=== PATIENT | male | born 1965 | race Native Hawaiian/Other Pacific Islander ===

== ENCOUNTER 2017-04-21 15:58 | Inpatient (IN) | payer MEDICAID ==
[~2017-04-21] VITALS: Ht 175.3 cm; Wt 88.5 kg
[2017-04-21 16:24] VITALS: BP 198/140
[2017-04-21] MEDS ORDERED: NACL 0.9% 1,000 ML IV SCH (16:37)
--- NOTE | 2017-04-21 16:37 | NUR ---
Patient ambulated to bed 03.
--- NOTE | 2017-04-21 16:38 | NUR ---
bed 04
--- NOTE | 2017-04-21 16:39 | NUR ---
Dr. Baker evaluating patient at bedside.
[2017-04-21] MEDS ORDERED: ONDANSETRON 4 MG/2 ML VIAL IVP ONE (16:40)
--- NOTE | 2017-04-21 16:45 | NUR ---
PATIENT PRESENTS TO ED WITH C/O DIZZINESS, NAUSEA, VOMITING, DRY MOUTH X6 DAYS CHECKED SUGAR AT HOME FROM MOTHER'S MACHINE AND READ > 600 HX---HTN, HEP C, ASTHMA, RX----NON COMPLIANT . DENIES DIARRHEA; SKIN IS PINK/WARM/DRY; AAOX4 WITH EVEN AND STEADY GAIT; LUNGS CLEAR BL; HR EVEN AND REGULAR; PT DENIES ANY FEVER, CP, SOB, OR COUGH AT THIS TIME; PATIENT STATES PAIN OF 0/10 AT THIS TIME; VSS; PATIENT POSITIONED FOR COMFORT; HOB ELEVATED; BEDRAILS UP X2; BED DOWN. ER MD MADE AWARE OF PT STATUS.
--- NOTE | 2017-04-21 16:55 | NUR ---
XRAY at bedside.
[2017-04-21] MEDS ORDERED: NACL 0.9% 3,000 ML IV ONE (17:00)
[2017-04-21] MEDS ORDERED: INSULIN HUMAN REGULAR 100 UNITS/ML 10 ML VIAL IVP ONE ×2 (17:00)
[2017-04-21 17:05] LABS: BASOPHILS # (AUTO) 0.4 K/uL (0.00-0.22); EOSINOPHILS # (AUTO) 0.1 K/uL (0-0.4); EOSINOPHILS % (AUTO) 1.2 % (0.0-4.0); HEMATOCRIT 51.7 % (36-52); HEMOGLOBIN 17.5 g/dL (12.0-18.0); LYMPHOCYTES # (AUTO) 3.5 K/uL (2.0-11.5); MEAN CORPUSCULAR HEMOGLOBIN 29 pg (27-31); MEAN CORPUSCULAR HGB CONC 34 g/dL (33-37); MEAN CORPUSCULAR VOLUME 86 fL (80-94); MONOCYTES # (AUTO) 0.6 K/uL (0.8-1.0); PLATELET COUNT (AUTO) 165 K/uL (140-450); RED CELL DISTRIBUTION WIDTH 11.5 % (11.6-13.7); WHITE BLOOD COUNT (AUTO) 10.6 K/uL (4.8-10.8)
[2017-04-21 17:28] LABS: INR 1.1 (0.8-1.2); PARTIAL THROMBOPLASTIN TIME 23.6 secs (22-35.6); PROTHROMBIN TIME 10.1 secs (10.8-13.4)
[2017-04-21 18:02] LABS: APPEARANCE,URINE CLEAR (CLEAR); BILIRUBIN,URINE NEGATIVE (NEGATIVE); BLOOD, URINE TRACE-L (NEGATIVE); COLOR,URINE YELLOW (YELLOW); LEUKOCYTE ESTERASE ,URINE NEGATIVE (NEGATIVE); NITRITE, URINE NEGATIVE (NEGATIVE); PH,URINE 5.5 (5.0-9.0); PROTEIN,URINE NEGATIVE (NEGATIVE); UGLUCOSE 3+ (NEGATIVE); UROBILINOGEN,URINE 0.2 EU/dL (0.2 - 1)
[2017-04-21 18:08] LABS: ANION GAP 15.9 (8-16); CARBON DIOXIDE 24.4 mmol/L (21-32); POTASSIUM 4.3 mmol/L (3.5-5.1)
[2017-04-21 18:10] LABS: CALCIUM 9.2 mg/dL (8.5-10.1); CREATININE 1.5 mg/dL (0.6-1.3); TOTAL BILIRUBIN 0.5 mg/dL (0.0-1.0)
--- NOTE | 2017-04-21 18:10 | NUR ---
3RD 1L NS 09% STARTED W/[address] RUSSO Addendum: 04/21/17 at 1857 by GREGG 1856 3RD 1L N/S 0.9% DONE
[2017-04-21 18:11] LABS: TOTAL PROTEIN, SERUM 9.1 g/dL (6.4-8.2)
[2017-04-21] MEDS ORDERED: ASPIRIN 325 MG TAB PO ONE (18:15)
[2017-04-21] MEDS ORDERED: NITROGLYCERIN 0.4 MG TAB SL ONE (18:15)
[2017-04-21] MEDS ORDERED: NITROGLYCERIN 2% 1 GM PKT TP ONE (18:15)
[2017-04-21] MEDS ORDERED: MORPHINE SULFATE 2 MG/ML SYR IVP PRN (18:25)
[2017-04-21] MEDS ORDERED: HYDROcodone/APAP 5/325 MG 1 TAB TAB PO PRN (18:25)
[2017-04-21] MEDS ORDERED: NITROGLYCERIN 0.4 MG TAB SL PRN (18:25)
[2017-04-21] MEDS ORDERED: DEXT 5% /NACL 0.9% 1,000 ML IV SCH (18:25)
[2017-04-21] MEDS ORDERED: ALUMINUM HYD/MAG/SIMETHICONE 30 ML UDC PO PRN (18:25)
[2017-04-21] MEDS ORDERED: ZOLPIDEM 5 MG TAB PO PRN (18:25)
[2017-04-21] MEDS ORDERED: ACETAMINOPHEN 325 MG TAB PO PRN (18:25)
[2017-04-21] MEDS ORDERED: LORazepam 1 MG TAB PO PRN (18:25)
[2017-04-21] MEDS ORDERED: DEXTROSE 50% 50 ML SYR IVP PRN (18:25)
[2017-04-21] MEDS ORDERED: ONDANSETRON 4 MG/2 ML VIAL IVP PRN (18:25)
--- NOTE | 2017-04-21 19:26 | NUR ---
Patient will be admitted to care of DR CRUZ. Admited to TELE. Will go to room 111A. Belongings list completed. Report to ARIS TAVARES.
[2017-04-21 19:41] LABS: AMPHETAMINE, URINE NEGATIVE ng/ml (NEG <=1000); BARBITURATE, URINE NEGATIVE ng/ml (NEG <=200); BENZODIAZEPINE, URINE NEGATIVE ng/mL (NEG <=200); CANNABINOID, URINE NEGATIVE ng/mL (NEG <=50); COCAINE, URINE NEGATIVE ng/mL (NEG <=300); OPIATE, URINE NEGATIVE ng/mL (NEG <=2000); PHENCYCLIDINE SCREEN,URINE NEGATIVE ng/mL (NEG <=25)
[2017-04-21] MEDS ORDERED: hydrALAZINE 20 MG/ML VIAL IVP STA ×2 (19:50→20:45)
--- NOTE | 2017-04-21 20:10 | NUR ---
DR GORDON NOTIFIED OF ELEVATED BP, AWAITING ORDERS, WILL CONTINUE TO MONITOR
[2017-04-21 20:27] LABS: RBC,URINE 0-5 (RARE) /HPF (0-5)
[2017-04-21 20:28] LABS: BACTERIA,URINE None Seen /HPF (None Seen); SQUAMOUS EPITHELIAL CELL,UR None Seen /LPF (0-3 (FEW)); WBC,URINE NONE SEEN /HPF (0-5)
[2017-04-21 21:15] VITALS: BP 163/92
--- NOTE | 2017-04-21 21:15 | NUR ---
ADMITTED A 51M FROM ER. CAME BY YUDITH DUE TO HIGH BLOOD SUGAR AND BLOOD PRESSURE. AWAKE,ALERT AND ORIENTED X4 . ON TELE MONITOR. AMBULATORY. WITH NO C/O ANY PAIN NOT DISCOMFORT NOTED. NO C/O DIZZINESS ALSO. BLOOD PRESSURE 163/92. ORIENTED TO HOSPITAL ROUTINES. PLAN OF CARE DISCUSSED AND VERBALIZED UNDERSTANDING. HAS HL ON THE RT AC #20. CLEAR AND PATENT. CALL LIGHT PLACED WITHIN EASY REACH. BED ON LOW POSITION. WILL FOLLOW UP ADMIT ORDERS.
[2017-04-21] MEDS: BLOOD GLUCOSE MONITORING 1 DEV DEV FS SCH (21:56)
[2017-04-21] MEDS: INSULIN LISPRO SLIDING SCALE 100 UNITS/ML VIAL SUBQ PRN (21:57)
--- NOTE | 2017-04-21 22:10 | NUR ---
PAGED DR. NANCY Rios RE" IVF ORDERED. CALLED BACK WITH NEW ORDER MADE.
[2017-04-21] MEDS: NACL 0.9% 1,000 ML IV SCH (22:37)
[2017-04-22] VITALS (7 sets, daily range): BP systolic 151–189; BP diastolic 90–107
--- NOTE | 2017-04-22 00:30 | NUR ---
MADE ROUNDS. ASLEEP. BUT VITALS TAKEN . BP 151/98, NO C/O ANY DIZZINESS NOR HEAD ACHE NOTED. WILL CONTINUE TO MONITOR.
[2017-04-22 01:46] LABS: CREATINE KINASE MB 1.1 ng/mL (0-3.6)
--- NOTE | 2017-04-22 02:00 | NUR ---
MADE ROUNDS. PT IS SLEEPING AT THIS TIME. WILL CONTINUE TO MONITOR.
[2017-04-22] MEDS: BLOOD GLUCOSE MONITORING 1 DEV DEV FS SCH ×4 (06:02→20:44)
[2017-04-22] MEDS: INSULIN LISPRO SLIDING SCALE 100 UNITS/ML VIAL SUBQ PRN ×4 (06:03→20:51)
--- NOTE | 2017-04-22 06:03 | NUR ---
BLOOD SUGAR THIS AM 325. INSULIN COVERAGE GIVEN SUBQ.
[2017-04-22 06:54] LABS: HEMATOCRIT 41.7 % (36-52); HEMOGLOBIN 14.2 g/dL (12.0-18.0); MEAN CORPUSCULAR HEMOGLOBIN 30 pg (27-31); MEAN CORPUSCULAR HGB CONC 34 g/dL (33-37); MEAN CORPUSCULAR VOLUME 88 fL (80-94); PLATELET COUNT (AUTO) 121 K/uL (140-450); RED BLOOD CELL COUNT(AUTO) 4.76 MIL/uL (4.20-6.10); RED CELL DISTRIBUTION WIDTH 11.5 % (11.6-13.7); WHITE BLOOD COUNT (AUTO) 8.4 K/uL (4.8-10.8)
[2017-04-22 07:11] LABS: CHOL/HDL RATIO 6.6 (1-4.5)
[2017-04-22 07:16] LABS: ALBUMIN 2.7 g/dL (3.4-5.0); ANION GAP 11.3 (8-16); CALCIUM 7.5 mg/dL (8.5-10.1); CARBON DIOXIDE 25.7 mmol/L (21-32); CREATININE 0.8 mg/dL (0.6-1.3); MAGNESIUM 1.8 mg/dL (1.8-2.4); PHOSPHORUS 2.7 mg/dL (2.5-4.9); TOTAL BILIRUBIN 0.5 mg/dL (0.0-1.0); TOTAL PROTEIN, SERUM 6.3 g/dL (6.4-8.2)
[2017-04-22 07:27] LABS: BAND % (MANUAL) 2 % (0-8); EOSINOPHILS % (MANUAL) 3 % (0-4); LYMPHOCYTES % (MANUAL) 36 % (20-46); MONOCYTES % (MANUAL) 11 % (5-12); NEUTROPHILS % (MANUAL) 48 (43-65)
--- NOTE | 2017-04-22 07:36 | NUR ---
ENDORSED PT IN STABLE CONDITION TO AM NURSE.
--- NOTE | 2017-04-22 07:40 | NUR ---
RECEIVED REPORT FROM ARIS MOON. PT IS A/OX 4, AMBULATORY, SKIN IS INTACT, IV IS ON THE RT AC, PATENT, INTACT, FLUSHING WELL, NO S/S OF RESPIRATORY DISTRESS OR DISCOMFORT NOTED, DISCUSSED PLAN OF CARE WITH PT, PT VERBALIZED UNDERSTANDING, CALL LIGHT IS WITHIN REACH, WILL CONTINUE TO MONITOR.
[2017-04-22] MEDS: NACL 0.9% 1,000 ML IV SCH ×3 (08:44→20:45)
[2017-04-22] MEDS: DOCUSATE SODIUM 100 MG GELCAP PO SCH (09:00)
--- NOTE | 2017-04-22 09:35 | NUR ---
PT IS RESTING IN BED TALKING ON HIS CELL PHONE.
--- NOTE | 2017-04-22 11:35 | NUR ---
PT RESTING IN BED WATCHING TV, FAMILY IS AT BEDSIDE AT THIS TIME.
--- NOTE | 2017-04-22 11:40 | NUR ---
DR. CRUZ IN TO SEE PT, ASKED DR. CRUZ IF HE COULD CHANGE THE PATIENT'S DIET BECAUSE HE IS CURRENTLY ON REGULAR DIET.
--- NOTE | 2017-04-22 11:43 | NUR ---
PATIENT HAS BEEN SCREENED AND CATEGORIZED MODERATE NUTRITION RISK. PATIENT WILL BE SEEN WITHIN 3-5 DAYS OF ADMISSION. 04/24/17 - 04/26/17 NICHOLAS MEDLEY MBA, RD Addendum: 04/23/17 at [address] PATIENT HAS BEEN RE-SCREENED AND MEETS CRITERIA FOR HIGH NUTRITION RISK. PATIENT WILL BE SEEN WITHIN 1-2 DAYS OF ADMISSION. 04/22/17-04/23/[address]
[2017-04-22] MEDS ORDERED: metFORMIN 500 MG TAB PO SCH (11:55)
[2017-04-22] MEDS ORDERED: PIOGLITAZONE 30 MG TAB PO SCH (11:56)
--- NOTE | 2017-04-22 13:30 | NUR ---
PT RESTING IN BED, WATCHING TV, CALL LIGHT IS WITHIN REACH.
--- NOTE | 2017-04-22 15:30 | NUR ---
PT SLEEPING IN BED AT THIS TIME.
--- NOTE | 2017-04-22 17:30 | NUR ---
PT RESTING IN BED, NO S/S OF RESPIRATORY DISTRESS OR DISCOMFORT NOTED, CALL LIGHT WITHIN REACH, WILL CONTINUE TO MONITOR.
[2017-04-22] MEDS: metFORMIN 500 MG TAB PO SCH (17:41)
--- NOTE | 2017-04-22 17:45 | NUR ---
PAGED DR. CRUZ TO LET HIM KNOW THE PATIENT'S BP WAS 189/107, HR 77, PER DR. CRUZ ORDER CLONIDINE 0.1MG, PO, Q6H, PRN.
[2017-04-22] MEDS ORDERED: amLODIPine 5 MG TAB PO SCH (19:00)
[2017-04-22] MEDS: cloNIDine 0.1 MG TAB PO PRN (19:04)
--- NOTE | 2017-04-22 19:15 | NUR ---
ENDORSED PT TO ARIS MOON. FOR CONTINUITY OF CARE, PT STABLE AT THIS TIME.
--- NOTE | 2017-04-22 19:20 | NUR ---
RECEIVED PT IN STABLE CONDITION FROM AM NURSE. AWAKE, ALERT AND ORIENTED X4. WITH NO C.O ANY PAIN NOR DISCOMFORT NOTED. MED SURG PT. HAS IVF INFUSING WELL ON THE RT AC #20. CLEAR AND PATENT. AMBULATORY. PLAN OF CARE DISCUSSED AND VERBALIZED UNDERSTANDING. BED ON LOW POSIITON. CALL LIGHT PLACED WITHIN EASY REACH. DR. SAAVEDRA JUST SEEN PT. WILL CONTINUE TO MONITOR.
--- NOTE | 2017-04-22 20:51 | NUR ---
BLOOD SUGAR WAS CHECKED RESULT 299. INSULIN COVERAGE GIVEN SUBQ. SNACK PROVIDED.
--- NOTE | 2017-04-22 22:00 | NUR ---
SLEEPING WELL AT THIS TIME. NO S/S OF ANY DISCOMFORT NOR PAIN NOTED.
--- NOTE | 2017-04-23 02:00 | NUR ---
SLEEPING WELL AT THIS TIME. NO S/S DISCOMFORT NOTED.
[2017-04-23] MEDS: NACL 0.9% 1,000 ML IV SCH ×2 (04:20→05:43)
[2017-04-23] MEDS: BLOOD GLUCOSE MONITORING 1 DEV DEV FS SCH ×4 (06:13→20:34)
[2017-04-23] MEDS: INSULIN LISPRO SLIDING SCALE 100 UNITS/ML VIAL SUBQ PRN ×4 (06:15→20:36)
--- NOTE | 2017-04-23 06:15 | NUR ---
BLOOD SUGAR WAS CHECKED THIS AM RESULT 253. INSULIN COVERAGE GIVEN SUBQ.
[2017-04-23 07:16] LABS: HEMATOCRIT 41.7 % (36-52); HEMOGLOBIN 14.3 g/dL (12.0-18.0); MEAN CORPUSCULAR HEMOGLOBIN 30 pg (27-31); MEAN CORPUSCULAR HGB CONC 34 g/dL (33-37); MEAN CORPUSCULAR VOLUME 87 fL (80-94); PLATELET COUNT (AUTO) 127 K/uL (140-450); RED BLOOD CELL COUNT(AUTO) 4.78 MIL/uL (4.20-6.10); RED CELL DISTRIBUTION WIDTH 11.4 % (11.6-13.7); WHITE BLOOD COUNT (AUTO) 6.3 K/uL (4.8-10.8)
--- NOTE | 2017-04-23 07:20 | NUR ---
RECEIVED PATIENT REPORT AT BEDSIDE. PATIENT AWAKE, ALERT, ORIENTED AND AMBULATORY. NO S/S OF DISTRESS NOTED. NO C/O PAIN AT THIS TIME. IV LINE NOTED TO THE RIGHT AC WITH IVF INFUSING WELL. BED LOWERED WITH CALL LIGHT WITHIN REACH. WILL CONTINUE TO MONITOR
--- NOTE | 2017-04-23 07:21 | NUR ---
ENDORSED PT IN STABLE CONDITION TO AM NURSE.
[2017-04-23 07:35] LABS: ANION GAP 12.4 (8-16); CALCIUM 7.8 mg/dL (8.5-10.1); CARBON DIOXIDE 26.3 mmol/L (21-32); CREATININE 0.8 mg/dL (0.6-1.3); POTASSIUM 3.7 mmol/L (3.5-5.1)
[2017-04-23 07:39] LABS: MAGNESIUM 1.7 mg/dL (1.8-2.4); PHOSPHORUS 2.7 mg/dL (2.5-4.9)
[2017-04-23 07:56] LABS: BAND % (MANUAL) 2 % (0-8); NEUTROPHILS % (MANUAL) 46 (43-65)
[2017-04-23 07:57] LABS: LYMPHOCYTES % (MANUAL) 45 % (20-46); MONOCYTES % (MANUAL) 7 % (5-12)
[2017-04-23 08:00] VITALS: BP 159/101
[2017-04-23] MEDS: DOCUSATE SODIUM 100 MG GELCAP PO SCH (09:00)
[2017-04-23] MEDS: PIOGLITAZONE 30 MG TAB PO SCH (09:02)
[2017-04-23] MEDS: metFORMIN 500 MG TAB PO SCH ×2 (09:02→17:00)
[2017-04-23] MEDS: amLODIPine 5 MG TAB PO SCH (09:03)
[2017-04-23] MEDS ORDERED: MAG SULF 2000 MG/WATER PREMIX 50 ML IV SCH (10:00)
[2017-04-23] MEDS ORDERED: LOSARTAN 25 MG TAB PO SCH (11:25)
--- NOTE | 2017-04-23 12:32 | NUR ---
RECEIVED CALL FROM RICH FROM [facility] FAXED INITIAL REVIEW TO [facility] [phone] PHONE [phone]
--- NOTE | 2017-04-23 14:32 | NUR ---
PATIENT IN BED RESTING COMFORTABLY. NO S/S OF DISTRESS NOTED
[2017-04-23 16:00] VITALS: BP 163/97
--- NOTE | 2017-04-23 16:17 | NUR ---
04/23/17 RD INITIAL ASSESSMENT COMPLETED PLEASE REFER TO NUTRITION ASSESSMENT UNDER CARE ACTIVITY FOR ESTIMATED NUTRITIONAL NEEDS. 1. CONTINUE 60 G CONSISTENT CARBOHYDRATE, CARDIAC DIET 2. RD TO FOLLOW-UP 2-3 DAYS; HIGH RISK RUSSELL BUTCHER RD
[2017-04-23] MEDS: cloNIDine 0.1 MG TAB PO PRN (17:01)
--- NOTE | 2017-04-23 19:30 | NUR ---
ASSUMED CARE OF PATIENT, AWAKE, ALERT AND ORIENTED. NO COMPLAINS. CALL LIGHT WITHIN REACH. NO DISTRESS OR PAIN NOTED.
--- NOTE | 2017-04-23 19:35 | NUR ---
PATIENT REPORT GIVEN AT BEDSIDE. PATIENT ENDORSED IN STABLE CONDITION
--- NOTE | 2017-04-23 20:30 | NUR ---
DUE MEDS GIVEN. HS SNACK GIVEN. NO COMPLAINS. PLAN OF CARE DISCUSSED WITH PATIENT, VERBALIZED UNDERSTANDING WELL. CALL LIGHT WITHIN REACH.
[2017-04-23 23:19] VITALS: BP 153/98
--- NOTE | 2017-04-23 23:46 | NUR ---
SLEEPING WELL. EASILY AROUSABLE NOTED. NO COMPLAINS. CALL LIGHT WITHIN REACH.
[2017-04-24] MEDS: BLOOD GLUCOSE MONITORING 1 DEV DEV FS SCH ×4 (05:52→20:47)
[2017-04-24] MEDS: INSULIN LISPRO SLIDING SCALE 100 UNITS/ML VIAL SUBQ PRN ×4 (06:11→20:48)
[2017-04-24 06:15] LABS: BASOPHILS # (AUTO) 0.3 K/uL (0.00-0.22); BASOPHILS % (AUTO) 4.9 % (0.0-2.0); EOSINOPHILS # (AUTO) 0.2 K/uL (0-0.4); EOSINOPHILS % (AUTO) 3.4 % (0.0-4.0); HEMATOCRIT 42.9 % (36-52); HEMOGLOBIN 14.3 g/dL (12.0-18.0); LYMPHOCYTES # (AUTO) 3.2 K/uL (2.0-11.5); LYMPHOCYTES % (AUTO) 49.9 % (20.5-51.1); MEAN CORPUSCULAR HEMOGLOBIN 30 pg (27-31); MEAN CORPUSCULAR HGB CONC 33 g/dL (33-37); MEAN CORPUSCULAR VOLUME 89 fL (80-94); MONOCYTES # (AUTO) 0.4 K/uL (0.8-1.0); MONOCYTES % (AUTO) 6.2 % (1.7-9.3); NEUTROPHILS # (AUTO) 2.3 K/uL (1.8-7.7); NEUTROPHILS % (AUTO) 35.6 % (42.2-75.2); PLATELET COUNT (AUTO) 123 K/uL (140-450); RED BLOOD CELL COUNT(AUTO) 4.85 MIL/uL (4.20-6.10); RED CELL DISTRIBUTION WIDTH 11.5 % (11.6-13.7); WHITE BLOOD COUNT (AUTO) 6.4 K/uL (4.8-10.8)
[2017-04-24 06:23] LABS: HEPATITIS A ANTIBODY IGM Negative (Negative); HEPATITIS A ANTIBODY TOTAL Positive (Negative); HEPATITIS B CORE AB TOTAL Positive (Negative); HEPATITIS B CORE, IGM Negative (Negative); HEPATITIS B SURFACE AB Reactive (.); HEPATITIS B SURFACE ANTIGEN Negative (Negative)
[2017-04-24 06:48] LABS: ANION GAP 13.2 (8-16); CALCIUM 7.9 mg/dL (8.5-10.1); CARBON DIOXIDE 26.4 mmol/L (21-32); CREATININE 0.7 mg/dL (0.6-1.3); POTASSIUM 3.6 mmol/L (3.5-5.1)
[2017-04-24 06:54] LABS: MAGNESIUM 1.9 mg/dL (1.8-2.4); PHOSPHORUS 3.3 mg/dL (2.5-4.9)
--- NOTE | 2017-04-24 07:17 | NUR ---
ENDORSED CARE AT BEDSIDE WITH EDMUNDO HURST, PATIEN IN STABLE CONDITION.
[2017-04-24 08:00] VITALS: BP 162/107
[2017-04-24] MEDS: DOCUSATE SODIUM 100 MG GELCAP PO SCH (09:00)
[2017-04-24] MEDS ORDERED: LOSARTAN 25 MG TAB PO SCH (09:00)
--- NOTE | 2017-04-24 09:20 | NUR ---
PATIENT SEEN BY DR ZAYAS
--- NOTE | 2017-04-24 09:20 | NUR ---
PATIENT PUT ON INSULIN TX BY DR ZAYAS. PATIENT EDUCATED ON HOW TO ADMINISTER INSULIN. PATIENT STATES THAT HE ADMINISTERS INSULIN TO HER MOM AT HOME
[2017-04-24] MEDS ORDERED: INSULIN DETEMIR 100 UNITS/ML 10 ML VIAL SUBQ SCH (09:30)
[2017-04-24] MEDS ORDERED: LOSARTAN 50 MG TAB PO SCH (09:35)
[2017-04-24] MEDS: metFORMIN 500 MG TAB PO SCH ×2 (09:41→16:48)
[2017-04-24] MEDS: amLODIPine 5 MG TAB PO SCH (09:41)
[2017-04-24] MEDS: PIOGLITAZONE 30 MG TAB PO SCH (09:42)
[2017-04-24] MEDS: cloNIDine 0.1 MG TAB PO PRN (09:42)
[2017-04-24 09:58] LABS: HEPATITIS C VIRUS ANTIBODY >11.0 s/co ratio (0.0-0.9)
--- NOTE | 2017-04-24 14:15 | NUR ---
FAXED CONCURRENT REVIEW TO [facility] [phone] PHONE [phone]
--- NOTE | 2017-04-24 14:21 | NUR ---
PATIENT GIVEN EDUCATION ABOUT INSULIN TX FOR DIABETES. PATIENT VERBALIZED UNDERSTANDING. PATIENT PROVIDED WITH READING MATERIALS FOR REFERENCE
[2017-04-24 16:00] VITALS: BP 160/103
[2017-04-24 16:32] LABS: FREE T4 (FREE THYROXINE) 1.49 ng/dL (0.76-1.46); THYROID STIMULATING HORMONE 3.04 uIU/mL (0.34-3.76)
--- NOTE | 2017-04-24 19:36 | NUR ---
PATIENT REPORT GIVEN AT BEDSIDE. PATIENT ENDORSED IN STABLE CONDITION
--- NOTE | 2017-04-24 19:36 | NUR ---
RECEIVED REPORT FROM GABRIEL HURST AT BEDSIDE. PT IS ALERT AWAKE ORIENTED X4. INITIAL ASSESSMENT DONE. NO S/S OF RESPIRATORY DISTRESS OR SOB NOTED. NO C/O PAIN OR ANY DISCOMFORT AT THIS TIME. PLAN OF CARE REVIEWED TO PT AND VERBALIZED UNDERSTANDING. CALL LIGHT WITHIN REACH. WILL CONTINUE TO MONITOR.
[2017-04-24] MEDS: LOSARTAN 50 MG TAB PO SCH (20:44)
[2017-04-25] VITALS: BP 137/89
--- NOTE | 2017-04-25 00:10 | NUR ---
PT IS SLEEPING RIGHT NOW BUT EASILY AROUSABLE. NO S/S OF ANY DISCOMFORT AT THIS TIME. ALL NEEDS ARE ATTENDED. CALL LIGHT WITHIN REACH. WILL CONTINUE TO MONITOR.
--- NOTE | 2017-04-25 05:00 | NUR ---
AM CARE RENDERED. BED LINEN CHANGED. INSTRUCTED PT TO REPOSITION. KEPT CLEAN AND DRY. CALL LIGHT WITHIN REACH. WILL CONTINUE TO MONITOR.
[2017-04-25] MEDS: BLOOD GLUCOSE MONITORING 1 DEV DEV FS SCH ×4 (06:35→21:46)
[2017-04-25] MEDS: INSULIN LISPRO SLIDING SCALE 100 UNITS/ML VIAL SUBQ PRN ×4 (06:36→22:09)
--- NOTE | 2017-04-25 07:33 | NUR ---
PT HAS NO S/S OF ANY DISCOMFORT. PLAN OF CARE WILL BE ENDORSED TO AM SHIFT NURSE FOR CONTINUITY OF CARE.
[2017-04-25 07:35] LABS: ANION GAP 12.3 (8-16); CALCIUM 8.4 mg/dL (8.5-10.1); CARBON DIOXIDE 26.5 mmol/L (21-32); CREATININE 0.8 mg/dL (0.6-1.3); POTASSIUM 3.8 mmol/L (3.5-5.1)
--- NOTE | 2017-04-25 07:35 | NUR ---
RECEIVED ON BED AAOX4. NO SOB NOTED. NO C/O PAIN AT THIS TIME. IV TO RT AC PATENT AND INTACT. CHEST CLEAR. ABDOMEN SOFT, BOWEL SOUNDS PRESENT. NO EDEMA NOTED. INSTRUCTED TO CALL FOR ASSISTANCE, CALL LIGHT WITHIN REACH. PT VERBALIZED UNDERSTANDING.
[2017-04-25 07:40] LABS: MAGNESIUM 1.7 mg/dL (1.8-2.4); PHOSPHORUS 3.9 mg/dL (2.5-4.9)
[2017-04-25 07:42] LABS: HEMATOCRIT 46.1 % (36-52); HEMOGLOBIN 15.4 g/dL (12.0-18.0); MEAN CORPUSCULAR HEMOGLOBIN 30 pg (27-31); MEAN CORPUSCULAR HGB CONC 34 g/dL (33-37); MEAN CORPUSCULAR VOLUME 88 fL (80-94); PLATELET COUNT (AUTO) 140 K/uL (140-450); RED BLOOD CELL COUNT(AUTO) 5.23 MIL/uL (4.20-6.10); RED CELL DISTRIBUTION WIDTH 11.7 % (11.6-13.7); WHITE BLOOD COUNT (AUTO) 5.8 K/uL (4.8-10.8)
[2017-04-25 08:00] VITALS: BP 157/59
[2017-04-25 08:25] LABS: BAND % (MANUAL) 4 % (0-8); EOSINOPHILS % (MANUAL) 2 % (0-4); LYMPHOCYTES % (MANUAL) 37 % (20-46); MONOCYTES % (MANUAL) 7 % (5-12); NEUTROPHILS % (MANUAL) 50 (43-65)
[2017-04-25] MEDS: DOCUSATE SODIUM 100 MG GELCAP PO SCH (09:00)
[2017-04-25] MEDS: amLODIPine 5 MG TAB PO SCH (10:01)
[2017-04-25] MEDS: metFORMIN 500 MG TAB PO SCH ×2 (10:01→17:28)
[2017-04-25] MEDS: LOSARTAN 50 MG TAB PO SCH ×2 (10:01→21:43)
[2017-04-25] MEDS: PIOGLITAZONE 30 MG TAB PO SCH (10:01)
[2017-04-25] MEDS: INSULIN DETEMIR 100 UNITS/ML 10 ML VIAL SUBQ SCH (10:03)
--- NOTE | 2017-04-25 10:41 | NUR ---
CM NOTE CONCURRENT REVIEW SENT TO [facility] FAX# [phone] PH# [phone]
[2017-04-25] MEDS ORDERED: HYDROCHLOROTHIAZIDE 25 MG TAB PO SCH (13:20)
--- NOTE | 2017-04-25 14:11 | NUR ---
PATIENT RESTING COMFORTABLY IN BED. NO S/S OF DISTRESS NOTED
[2017-04-25 16:00] VITALS: BP 167/126
[2017-04-25] MEDS: cloNIDine 0.1 MG TAB PO PRN (17:54)
--- NOTE | 2017-04-25 19:21 | NUR ---
PATIENT REPORT GIVEN AT BEDSIDE. PATIENT ENDORSED IN STABLE CONDITION
--- NOTE | 2017-04-25 19:22 | NUR ---
RECEIVED PT FROM GABRIEL HURST PT IS AAOX4 AMBULATOY HL ON RT ARM PATENT DENIES ANY KPAIN OR DISCOMFORT AT THIS TIME INITIAL ASSESSMENT DONE
[2017-04-25 20:00] VITALS: BP 150/89
--- NOTE | 2017-04-25 21:30 | NUR ---
BLOOD SUGAR TEST 277 COVERAGE WITH 6 UNITS REG INSULIN Addendum: 04/26/17 at 0637 by Shefali Bee RN COVERAGE WITH 6 UNITS HUMALOG SUB Q
[2017-04-25] MEDS: MAGNESIUM OXIDE 400 MG TAB PO SCH (21:44)
[2017-04-26] VITALS: BP 138/86
--- NOTE | 2017-04-26 01:17 | NUR ---
PT SLEEPING WELL NOT DISTRESS NOTED AT THIS TIME
--- NOTE | 2017-04-26 04:12 | NUR ---
SPONGE BATH GIVEN;, LINEN CHANGED PT REMAIN QUIET DENIES ANY PAIN OR DISCOMFORT
[2017-04-26] MEDS: INSULIN LISPRO SLIDING SCALE 100 UNITS/ML VIAL SUBQ PRN (06:11)
[2017-04-26] MEDS: BLOOD GLUCOSE MONITORING 1 DEV DEV FS SCH (06:17)
--- NOTE | 2017-04-26 06:41 | NUR ---
BLOOD SUGAR TEST 231 COVERAGE WITH 4 UNITS SUBQ HUMALOG
[2017-04-26 06:43] LABS: BASOPHILS # (AUTO) 0.3 K/uL (0.00-0.22); BASOPHILS % (AUTO) 4.6 % (0.0-2.0); EOSINOPHILS # (AUTO) 0.2 K/uL (0-0.4); EOSINOPHILS % (AUTO) 3.4 % (0.0-4.0); HEMATOCRIT 46.4 % (36-52); HEMOGLOBIN 15.4 g/dL (12.0-18.0); LYMPHOCYTES # (AUTO) 3.1 K/uL (2.0-11.5); LYMPHOCYTES % (AUTO) 52.2 % (20.5-51.1); MEAN CORPUSCULAR HEMOGLOBIN 29 pg (27-31); MEAN CORPUSCULAR HGB CONC 33 g/dL (33-37); MEAN CORPUSCULAR VOLUME 88 fL (80-94); MONOCYTES # (AUTO) 0.6 K/uL (0.8-1.0); MONOCYTES % (AUTO) 9.4 % (1.7-9.3); NEUTROPHILS # (AUTO) 1.8 K/uL (1.8-7.7); NEUTROPHILS % (AUTO) 30.4 % (42.2-75.2); PLATELET COUNT (AUTO) 161 K/uL (140-450); RED BLOOD CELL COUNT(AUTO) 5.26 MIL/uL (4.20-6.10); RED CELL DISTRIBUTION WIDTH 11.9 % (11.6-13.7)
[2017-04-26 06:48] LABS: ANION GAP 11.8 (8-16); CALCIUM 8.9 mg/dL (8.5-10.1); CARBON DIOXIDE 28.9 mmol/L (21-32); CREATININE 0.9 mg/dL (0.6-1.3); POTASSIUM 3.7 mmol/L (3.5-5.1)
[2017-04-26 06:54] LABS: MAGNESIUM 1.7 mg/dL (1.8-2.4); PHOSPHORUS 4.6 mg/dL (2.5-4.9)
--- NOTE | 2017-04-26 07:20 | NUR ---
RECEIVED REPORT FROM MANGA ARTIST NURSE AT BEDSIDE. UPDATED THE BOARD. PT IS SLEEPING. NO DISTRESS NOTED. PT HAS IV ON R AC 20 G SL. CALL LIGHT WITHIN REACH. WILL CONTINUE TO MONITOR.
[2017-04-26 08:00] VITALS: BP 144/90
[2017-04-26] MEDS: metFORMIN 500 MG TAB PO SCH (08:21)
[2017-04-26] MEDS: DOCUSATE SODIUM 100 MG GELCAP PO SCH (08:22)
[2017-04-26] MEDS: PIOGLITAZONE 30 MG TAB PO SCH (08:23)
[2017-04-26] MEDS: LOSARTAN 50 MG TAB PO SCH (08:23)
[2017-04-26] MEDS: amLODIPine 5 MG TAB PO SCH (08:23)
[2017-04-26] MEDS: MAGNESIUM OXIDE 400 MG TAB PO SCH (08:23)
[2017-04-26] MEDS: INSULIN DETEMIR 100 UNITS/ML 10 ML VIAL SUBQ SCH (08:24)
[2017-04-26] MEDS ORDERED: HYDROCHLOROTHIAZIDE 25 MG TAB PO SCH ×2 (09:00)
--- NOTE | 2017-04-26 09:20 | NUR ---
FAMILY VISITING AT BEDSIDE. PT IS RESTING COMFORTABLY IN BED. CALL LIGHT WITHIN REACH. WILL CONTINUE TO MONITOR.
[2017-04-26] MEDS ORDERED: METF500T4 PO (09:58)
[2017-04-26] MEDS ORDERED: PIOG30TA6 PO (09:58)
[2017-04-26] MEDS ORDERED: AMLO5TAB4 PO (09:58)
[2017-04-26] MEDS ORDERED: LEVEMIR SUBQ (09:58)
[2017-04-26] MEDS ORDERED: ORE25 PO (09:58)
[2017-04-26] MEDS ORDERED: LOSA50TA1 PO (09:58)
[2017-04-26 10:01] VITALS: BP 144/90
--- NOTE | 2017-04-26 10:21 | NUR ---
CM NOTE CONCURRENT REVIEW SENT TO [facility] FAX# [phone] PH# [phone]
--- NOTE | 2017-04-26 10:25 | NUR ---
WENT OVER DISCHARGE PAPERWORK WITH PT. PT VERBALIZED UNDERSTANDING AND SIGNED ALL APPROPRIATE PAPERS. IV REMOVED, ALL BAND REMOVED. PT WILL GET READY AND CALL NURSE.
--- NOTE | 2017-04-26 10:29 | NUR ---
PT LEFT UNIT ACCOMPANIED BY NURSE. PT IN STABLE CONDITION.
== END 2017-04-26 10:29 | disposition home or self-care (01) | DRG 468 ==
LOC: MED 15:58 → MTU 18:33
PROVIDERS: ADMIT Preventive Medicine Preventive Medicine/Occupational Environmental Medicine; ATTEND Preventive Medicine Preventive Medicine/Occupational Environmental Medicine
DX: I12.9 Hypertensive chronic kidney disease with stage 1 through stage 4 chronic kidney disease, or unspecified chronic kidney disease (principal); E11.00 Type 2 diabetes mellitus with hyperosmolarity without nonketotic hyperglycemic-hyperosmolar coma (NKHHC); N17.9 Acute kidney failure, unspecified; E11.21 Type 2 diabetes mellitus with diabetic nephropathy; E88.81 Metabolic syndrome and other insulin resistance; B19.10 Unspecified viral hepatitis B without hepatic coma; D69.6 Thrombocytopenia, unspecified; K76.0 Fatty (change of) liver, not elsewhere classified; E11.65 Type 2 diabetes mellitus with hyperglycemia; N18.9 Chronic kidney disease, unspecified; F10.21 Alcohol dependence, in remission; B18.2 Chronic viral hepatitis C; E11.22 Type 2 diabetes mellitus with diabetic chronic kidney disease; E83.42 Hypomagnesemia; E83.52 Hypercalcemia; E88.09 Other disorders of plasma-protein metabolism, not elsewhere classified; R74.0 Nonspecific elevation of levels of transaminase and lactic acid dehydrogenase [LDH]; Z91.19 Patient's noncompliance with other medical treatment and regimen; Z87.891 Personal history of nicotine dependence; Z82.49 Family history of ischemic heart disease and other diseases of the circulatory system; Z83.3 Family history of diabetes mellitus
CPT/HCPCS: 36415; 71010; 76700; 80048; 80053; 80305; 81001; 82150; 82550; 82553; 82948; 83036; 83690; 83735; 83880; 84100; 84439; 84443; 84484; 85025; 85610; 85730; 86704; 86706; 86708; 86709; 86803; 87081; 87340; 93005; 96361; 96374; 96375; 99285; J0360; J1644; J1815; J2405; J3475; J7030; Q0092